=== PATIENT | female | born 1965 | race Caucasian/White ===

== ENCOUNTER 2019-05-25 17:28 | Observation (INO) ==
--- NOTE | 2019-05-25 17:58 | EKG Report ---
Test Performed on : 05/25/2019 5:55:27 PM Test Reason : blurred vision Blood Pressure : / mmHG Vent. Rate : 090 BPM Atrial Rate : 090 BPM P-R Int : 154 ms QRS Dur : 082 ms QT Int : 356 ms P-R-T Axes : 056 026 029 degrees QTc Int : 435 ms Normal sinus rhythm. Possible Left atrial enlargement Anterior infarct , age undetermined Abnormal ECG When compared with ECG of 15-FEB-2017 02:07, Anterior infarct is now present Unconfirmed Result
--- NOTE | 2019-05-25 18:09 | PROVIDER DOCUMENTATION ---
HPI-Neurological Disorder - General Chief Complaint: General Adult Stated Complaint: IRREGULAR BP Time Seen by Provider: 05/25/19 17:56 Source: patient Allergies/Adverse Reactions: Patient Allergies Allergy/AdvReac Type Severity Reaction Status Date / Time No Known Allergies Allergy Verified 02/15/17 02:05 Home Medications: Home Medication List Medication Instructions Recorded Confirmed Last Taken Type Losartan Potassium 02/15/17 1 Day Ago History ~02/14/17 - History of Present Illness-Neuro Nature of Presenting Problem: 53 yof with pmh of HTN presents with c/o visual loss in peripheral field and 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 She reports this lasted about 15-20min. She denies all other symptoms including CP, SOB, Fever, Chills, N/V/D. She does report she had drank aprox 1 liter of mt dew while painting today. Severity: reports: moderate Onset/Duration: reports: 1-3 hours ago Timing: reports: gone now Approximate time patient was last seen normal?: 16:00 Any recent trauma/injury?: reports: none Character of Deficits: reports: vision problem/glaucoma New weakness or altered sensation location:: reports: none Cognitive Baseline: alert, oriented x3 Gait Baseline: walks without assistance Associated Symptoms: reports: vision changes (resolved) Similar Symptoms Previously?: No Recently seen or treated by another doctor?: No Review of Systems - Adult - REVIEW OF SYSTEMS - ADULT Constitutional: reports: no symptoms reported. denies: see HPI, chills, fever, fatique, night sweats, weight gain, weight loss, other Eyes: reports: see HPI, decreased vision (IN L PERIPHERAL), blurred vision Ears, Nose, Mouth & Throat: reports: no symptoms reported. denies: see HPI, ear discharge, ear pain, hearing loss, tinnitus, epistaxis, sinus problem, nose pain, loose teeth, mouth/dental pain, mouth swelling, hoarseness, throat pain, throat swelling, other Cardiovascular: reports: no symptoms reported. denies: see HPI, chest pain, edema, heart murmur, irregular heart rate, orthopnea, palpitations, poor circulation, PND, syncope, other Respiratory: reports: no symptoms reported. denies: see HPI, chronic cough, cough, dyspnea on exertion, excessive sputum production, hemoptysis, pleurisy, shortness of breath, wheezing, other Gastrointestinal: reports: no symptoms reported. denies: see HPI, abdominal pain, hematemesis, constipation, diarrhea, difficulty swallowing, frequent heartburn, nausea, poor appetite, rectal bleeding, vomiting, other Genitourinary: reports: no symptoms reported. denies: see HPI, dysuria, discharge, frequency, flank pain, frequent UTI's, hematuria, hesitency, incontinence, urinary retention, urgency, other Musculoskeletal: reports: no symptoms reported. denies: see HPI, bone pain, back pain, frequent leg cramps, joint pain, joint swelling, muscle aches, muscle weakness, neck pain, other Integumentary: reports: no symptoms reported. denies: see HPI, hives, hair loss, itching, mole changes, nail changes, rash, skin sores/ulcer, skin thickening, other Neurological: reports: see HPI. denies: no symptoms reported, ataxia, dizziness/vertigo, headache/migraines, loss of balance, numbness, paresthesia, seizure, slurred speech, syncope, tremors, other Psychiatric: reports: no symptoms reported. denies: see HPI, anxiety, anti-depressant use, alcohol/drug dependence, depression, emotional problems, insomnia, panic attacks, suicidal thoughts, other Endocrine: reports: no symptoms reported. denies: see HPI, change in skin pigment, excessive sweating, goiter, cold intolerance, heat intolerance, increased hunger, increased thirst, polyuria, other Hematologic/Lymphatic: reports: no symptoms reported. denies: see HPI, blood clots, easy bruising, low blood count, lymphedema, prolonged bleeding, swollen lymph nodes, transfusions, other Allergic/Immunologic: reports: no symptoms reported. denies: see HPI, allergic reactions, allergic rhinitis, asthma, eczema, food allergy, frequent infections, hay fever, hives, positive PPD, urticaria, other Past History - Adult - PAST MEDICAL HISTORY-ADULT Review of Records: reports: Nursing Assessment Review, Social history reviewed & non-contributory. Major Childhood Illnesses: reports: denies history Cardiovascular: reports: HTN Respiratory: reports: denies history Gastrointestinal: reports: denies history Obstetrical/Gynecological: reports: denies history Genitourinary: reports: denies history Musculoskeletal: reports: denies history Neurological: reports: denies history Endocrine/Immune: reports: denies history Other Conditions: reports: denies history - PRIOR SURGERIES/PROCEDURES Surgical/Procedure History: reports: hysterectomy - IMMUNIZATION STATUS Childhood Immunizations: See Nurse Assessment Flu Vaccine: See Nurse Assessment Physical Exam- Neurological - Physical Exam-Neuro Initial Vital Signs Reviewed: Yes General Appearance: appears well, alert, no apparent distress Eye Exam: bilateral eye: normal inspection, PERRL, EOMI, other (CURRENLTLY ALL VISUAL KELLY INTACT) HENMT: normocephalic/atraumatic, moist mucous membranes, normal ENT inspection Head Injury: no evidence of injury Neck: non-tender, full range of motion, supple Respiratory: chest non-tender, lungs clear, normal breath sounds, no pleuratic chest pain, no respiratory distress, no accessory muscle use Cardiovascular: normal peripheral pulses, regular rate, rhythm, no edema, no gallop, no JVD, no murmur Abdominal Exam: normal bowel sounds, non tender, soft Lymphatic: no adenopathy Extremity: normal range of motion, non-tender, normal gait, 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 negative: abnormal eye po sition, abnormal gag reflex, abnormal pupil position, abnormal speech, facial droop, facial paresthesias, facial weakness, gaze palsy, hearing deficit (R), hearing deficit (L), tongue deviation to R, tongue deviation to L Coordination/Gait: normal finger to nose, normal gait Motor/Sensory: no motor deficit, no sensory deficit, no pronator drift. negative: sensory deficit Neurologic: grossly normal Integumentary: normal color, normal turgor, warm/dry Psych/Mental Status: normal mood/affect, oriented x 3 - Glascow Coma Scale Best Eye Response: (4) open spontaneously Best Verbal Response: (5) oriented Best Motor Response: (6) obeys commands Progress - PLAN OF CARE/RESULTS Progress/Plan/Lab Results: Vital Signs - 8 hr 05/25/19 17:49 Temperature 98.4 F Pulse Rate 93 H Respiratory Rate 16 Blood Pressure 154/84 O2 Sat by Pulse Oximetry 97 Laboratory Results - last 24 hr 05/25/19 05/25/19 05/25/19 18:07 18:07 18:07 WBC 11.75 H RBC 4.55 Hgb 14.2 Hct 42.3 MCV 93.0 MCH 31.2 H MCHC 33.6 RDW Std Deviation 13.3 Plt Count 271 MPV 10.5 H Immature Gran % (Auto) 0.2 Neut % (Auto) 63.5 Lymph % (Auto) 27.7 [place] % (Auto) 6.7 Eos % (Auto) 1.6 Baso % (Auto) 0.3 Immature Gran # (Auto) 0.02 Neut # (Auto) 7.45 H Lymph # (Auto) 3.26 [place] # (Auto) 0.79 H Eos # (Auto) 0.19 Baso # (Auto) 0.04 Sodium Potassium Chloride Carbon Dioxide Anion Gap BUN Creatinine Estimated GFR/1.73 m2 BUN/Creatinine Ratio Glucose Calculated Osmolality Calcium Total Bilirubin AST ALT Alkaline Phosphatase Creatine Kinase 148 Troponin T < 0.010 Total Protein Albumin Globulin Albumin/Globulin Ratio 05/25/19 18:07 WBC RBC Hgb Hct MCV MCH MCHC RDW Std Deviation Plt Count MPV Immature Gran % (Auto) Neut % (Auto) Lymph % (Auto) [place] % (Auto) Eos % (Auto) Baso % (Auto) Immature Gran # (Auto) Neut # (Auto) Lymph # (Auto) [place] # (Auto) Eos # (Auto) Baso # (Auto) Sodium 142 Potassium 3.8 Chloride 107 Carbon Dioxide 21 L Anion Gap 14 BUN 17 Creatinine 0.6 Estimated GFR/1.73 m2 > 60 BUN/Creatinine Ratio 28 Glucose 104 Calculated Osmolality 285 Calcium 8.7 L Total Bilirubin 0.20 AST 15 ALT 16 Alkaline Phosphatase 84 Creatine Kinase Troponin T Total Protein 6.7 Albumin 4.3 Globulin 2.0 Albumin/Globulin Ratio 2.0 Orders Category Date Time Status CT HEAD W/O CONTRAST [CT] Stat Exams 05/25/19 18:03 Completed CBC WITH DIFF [HEME] Stat Lab 05/25/19 18:07 Completed CK PROFILE [SP CHEM] Stat Lab 05/25/19 18:07 Completed COMPREHENSIVE METABOLIC PANEL [CHEM] Stat Lab 05/25/19 18:07 Completed TROPONIN T Stat Lab 05/25/19 18:07 Completed Nicotine Patch [Nicoderm Patch] Med 05/25/19 20:37 Discontinued 21 mg TD NOW ONE EKG [EKG] Stat Ther 05/25/19 17:54 Draft Result Diagrams: 05/25/19 18:07 05/25/19 18:07 - EKG 1 Time of EKG reading by physician:: 18:05 EKG Read and Signed by:: Glynn Domingo EKG Interpretation (*Must complete 3 of following elements*): Abnormal Rate: 90 Rhythm: NSR W POSSIBLE L ATRIAL ENLARGEMENT [place]: normal QRS: normal CT Interval: normal ST Wave: non-specific ST changes Prior EKG Comparison: changes noted - CT/MRI 1 CT Study: Head Impression: See EMR Report (CT HEAD W/O CONTRAST - 05/25/2019 INDICATION: vision changes COMPARISON: None FINDINGS: The ventricles and sulci are normal in size and contour. No intracranial mass or hemorrhage. The skull is intact. The sinuses mastoids and middle ears are clear. IMPRESSION: Negative exam. This exam was performed using automated exposure control, adjustment of mA or kV according to patient size, and/or use of iterative reconstruction technique Electronically signed by Keven Moser 05/25/2019 7:55 PM 05/25/191954 Interpreting Physician: Keven Moser MD Dictated Date/Time: 05/25/191953 cc: Jeanette Beebe; Grisel Pritchard MD) - CONSULTS/PCP/HOSPITALIST Notification #1 *Consult/PCP/Hospitalist*: DR RIVERA Time Discussed: 20:49 Consult Disposition: Admit Departure - Departure Date of Disposition Decision: 05/25/19 Time of Disposition Decision: 20:50 DIAGNOSIS: TIA (transient ischemic attack) Disposition: ADMITTED INPATIENT 09 Certified Medical Emergency: Emergent Condition: Stable Referrals and Follow-Ups: Grisel Pritchard MD [Primary Care Provider] - - Critical Care Note This patient required my direct & personal management of CC.: No Attestation - Physician/ CAMMIE Attestation Patient care was provided by Advanced Practice Provider:: Yes Advanced Practice Provider:: Jeanette Beebe Advanced Practice Provider documentation review:: The Mid-level provider documentation, treatment plan and medical decision making was reviewed by the physician who agrees with all treatment and medical decision making by the MLP. The physician spent face to face time with patient:: No Advanced Practice Provider documentation review:: Supervising physician onsite and consulted in the evaluation and care of this patient. The physician did not have a face to face encounter with the patient. - NIH Stroke Scale NIH Type: Initial Evaluation Level of Consciousness: 0-Alert LOC Questions (ask month and age): 0-Answers Both Correctly Best Gaze (horizontal eye movement): 0-Normal Visual (use finger movement, counting or visual threat): 0-No Visual Loss Facial Palsy (show teeth or raise eyebrows & close eyes tght: 0-Symmetrical Movement Motor Function-left arm: 0-Normal Motor Function-right arm: 0-Normal Motor Function-left le-Normal Motor Function-right le-Normal Limb Ataxia([id number]-[id number], or heel to phillips): 0-No Ataxia Sensory(pin prick to face,arms,trunk,legs-compare side/side): 0-No Ataxia Best Language(name item/read sentence.Ex-Down to Earth): 0-No Aphasia Dysarthria(Pt read words or say words Ex.Mama,Tip-Top,Thanks: 0-Normal Articulation Extinction and Inattention: 0-Normal Modified Easton Score Criteria: 0-no symptoms
[2019-05-25 18:12] LABS: BASO# 0.04 X1000 (0.0-0.2); BASO% 0.3 % (0.0-0.8); EOS# 0.19 X1000 (0.0-0.7); EOS% 1.6 % (0.0-10.0); HEMATOCRIT 42.3 % (37.0-47.0); HEMOGLOBIN 14.2 g/dL (12.0-16.0); IMM GRAN# 0.02 X1000 (0.0-0.04); IMM GRAN% 0.2 % (0.0-0.5); LYMPH# 3.26 X1000 (1.2-3.4); LYMPH% 27.7 % (20.5-51.1); MCH 31.2 PG (27-31); MCHC 33.6 g/dL (33-37); MONO# 0.79 X1000 (0.11-0.59); MONO% 6.7 % (1.7-9.3); MPV 10.5 FL (7.4-10.4); NEUT# 7.45 X1000 (1.4-6.5); NEUT% 63.5 % (42.2-75.2); PLT 271 X1000 (130-400); RBC 4.55 XMIL (4.2-5.4); RDW 13.3 % (11.5-14.5); WBC 11.75 X1000 (4.8-10.8)
[2019-05-25 18:36] LABS: AGAP 14; ALBUMIN 4.3 g/dL (3.5-5.0); ALKALINE PHOSPHATASE 84 U/L (32-104); BUN 17 mg/dL (8-22); CALCIUM 8.7 mg/dL (8.8-10.2); CHLORIDE 107 mmol/L (98-107); COSMO 285; CREATININE 0.6 mg/dL (0.5-0.9); ESTIMATED GFR > 60; GLUCOSE 104 mg/dL (70-104); GOT 15 U/L (10-30); GPT 16 U/L (10-36); POTASSIUM 3.8 mmol/L (3.5-5.1); SODIUM 142 mmol/L (136-145); TCO2 21 mmol/L (25-35); TOTAL PROTEIN 6.7 g/dL (6.3-8.3)
--- NOTE | 2019-05-25 19:58 | Diag Imaging Result Doc PS360 ---
CT HEAD W/O CONTRAST - 05/25/2019 INDICATION: vision changes COMPARISON: None FINDINGS: The ventricles and sulci are normal in size and contour. No intracranial mass or hemorrhage. The skull is intact. The sinuses mastoids and middle ears are clear. IMPRESSION: Negative exam. This exam was performed using automated exposure control, adjustment of mA or kV according to patient size, and/or use of iterative reconstruction technique Electronically signed by Keven Moser 05/25/2019 7:55 PM
[2019-05-25] MEDS ORDERED: NICODERM PATCH TD ONE (20:37)
[2019-05-25 22:50] LABS: CHOLESTEROL 155 mg/dL (0-200); HDL 54 mg/dL (45-65); LDL 79 mg/dL; TRIGLYCERIDES 112 mg/dL (35-135); VLDL 22 mg/dL
[2019-05-25] MEDS: ASPIRIN PO SCH (23:18)
--- NOTE | 2019-05-26 08:22 | Diag Imaging Result Doc PS360 ---
EXAM: MRI BRAIN W/O CONTRAST - 05/25/2019 HISTORY: tia TECHNIQUE: MRI brain without contrast. No contrast administered per request of the referring provider. COMPARISON: 05/25/2019 CT head without contrast FINDINGS: There is no evidence of intracranial hemorrhage, mass effect, midline shift, or hydrocephalus. The diffusion weighted images show no areas of restricted diffusion (no evidence of acute infarct). There are possibly minimal chronic microvascular ischemic changes. There are no other substantial signal abnormalities identified. IMPRESSION: Possible minimal chronic microvascular ischemic changes. No visible acute intracranial abnormality. No evidence of acute infarct. Electronically signed by Marcelo Polanco 05/26/2019 8:20 AM
--- NOTE | 2019-05-26 08:27 | Diag Imaging Result Doc PS360 ---
EXAM: MRA BRAIN W/O CONTRAST - 05/25/2019 HISTORY: tia TECHNIQUE: MRA brain without contrast. MR angiogram of the intracranial circulation with 3-D MIP images is obtained. COMPARISON: None. FINDINGS: There is no major intracranial arterial occlusion identified. The left anterior cerebral artery is generally mildly smaller in caliber than the right which is likely long-standing and may relate to normal variation. There is no discrete focal substantial stenosis of major intracranial arteries identified. There is no aneurysm identified. IMPRESSION: No discrete significant abnormality. Electronically signed by Marcelo Polanco 05/26/2019 8:25 AM
[2019-05-26] MEDS ORDERED: COZAAR PO SCH (10:00)
[2019-05-26] MEDS: ASPIRIN PO SCH (10:04)
[2019-05-26] MEDS ORDERED: NICODERM PATCH TD SCH (10:15)
--- NOTE | 2019-05-26 10:18 | Extremity Venous Study ---
EXAM: Carotid Ultrasound - 05/25/2019 HISTORY: tia TECHNIQUE: Carotid flow studies COMPARISON: None. FINDINGS: There is no substantial atherosclerotic plaquing identified in the right carotid system. Maximum systolic velocity in the right internal carotid is 110 cm/s, and maximum diastolic velocity is 41 cm/s. The right internal to common carotid systolic velocity ratio is 1.30. The flow velocities and ratio are consistent with 0-39% stenosis at the right internal carotid. The right vertebral demonstrates antegrade flow. There is no substantial atherosclerotic plaquing identified in the left carotid system. Maximum systolic velocity in the left internal carotid is 72 cm/s, and maximum diastolic velocity is 24 cm/s. The left internal to common carotid systolic velocity ratio is 0.70. The flow velocities and ratio are consistent with 0-39% stenosis at the left internal carotid. The left vertebral demonstrates antegrade flow. IMPRESSION: 0-39% stenosis at right internal carotid. 0-39% stenosis at left internal carotid. Electronically signed by Marcelo Polanco 05/26/2019 10:15 AM
--- NOTE | 2019-05-26 11:32 | HISTORY AND PHYSICAL ---
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 CHIEF COMPLAINT: Blurred vision and vision loss. HISTORY OF PRESENT ILLNESS: Ms. Monique is a 53-year-old female with past medical history of hypertension. 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 She stated that while she was painting she had some blurred vision and she actually had a little bit of vision loss for just a few minutes. With this blurred vision, she stated that she did check her blood pressure, blood pressure was noted to be 150/100. She had some peripheral vision dizziness where she was seeing floaters in her peripheral cheung. The patient states she did not have any confusion or any slurred speech or any weakness. These symptoms persisted for about 15- 20 minutes and then they stopped. The patient states she had not taken her blood pressure medication yesterday morning. She did take her blood pressure medicine when she started having these symptoms and the symptoms did resolve in about 20 minutes. The patient denied any chest pain, shortness of breath, fever or chills, nausea, vomiting, or diarrhea. 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 She does take losartan at home. She did have losartan/hydrochlorothiazide that she was taking for some time. Her primary MD did change her medication recently just putting her on the losartan and her blood pressure has been elevated and her associate professor physician reordered her some hydrochlorothiazide 12.5 mg. However, she has not picked up that prescription. Laboratory findings in the ER show a white blood cell count of 11.75. CT scan is a negative exam. MRI/MRA was performed. The MRI showed possible minimal chronic microvascular ischemic changes but no acute intracranial abnormality and no acute infarction. The MRA shows no abnormality. PAST MEDICAL HISTORY: Hypertension, tobacco dependency. PAST SURGICAL HISTORY: section and hysterectomy. FAMILY HISTORY: Significant for heart problems. SOCIAL HISTORY: The patient lives in [place]. 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 She smokes 1 pack of cigarettes per day for greater than 40 years. States she does not do any illicit drugs, however, she does drink occasionally alcohol once every 3-4 months. ALLERGIES: No known drug allergies. MEDICATIONS: Losartan potassium 100 mg p.o. daily. LABS AND DIAGNOSTICS: White blood cell count 11.75, hemoglobin 14.2, hematocrit 42.3, platelet count is 271. Sodium 142, potassium 3.8, chloride 107, carbon dioxide 21, anion gap 14, BUN is 17, creatinine is 0.6, GFR is greater than 60, glucose is 104, calcium is 8.7, bilirubin is 0.2, AST is 15, ALT is 16, alkaline phosphatase is 84. Creatine kinase 148, troponin less than 0.01. Triglycerides 112, cholesterol is 155, LDL is 79, VLDL 22, HDL 54. Head CT is negative. MRA of the brain shows no discrete significant abnormality. MRI of the brain shows possible minimal chronic microvascular ischemic changes, no visible acute intracranial abnormality. No evidence of acute infarction. Carotid Doppler studies have been performed, the results are not back. EKG shows normal sinus rhythm with a rate of 90 beats per minute. REVIEW OF SYSTEMS: A 12-point review of systems has been obtained and are well negative except what is stated above in the HPI. PHYSICAL EXAMINATION: VITAL SIGNS: Temperature 97.6, pulse rate 62, respiratory rate 14, blood pressure is 151/65, O2 saturation is 99% on room air. GENERAL: This is a 53-year-old female. She is sitting upon the side of the bed. She is in no acute distress. She is well-nourished and well-developed. HEENT: Atraumatic, normocephalic. Pupils equal, round, and reactive to light. Sclerae icteric. Mucous membranes are moist. NECK: Supple. No lymphadenopathy. Trachea is midline. No JVD. No thyromegaly. No bruits. CARDIOVASCULAR: Regular rate and rhythm. No gallops or rubs noted. RESPIRATORY: Lungs sounds are clear with equal chest excursion. Respirations are nonlabored with no accessory muscle usage. GASTROINTESTINAL: Abdomen is soft, nontender, nondistended, bowel sounds are present x4. NEUROLOGICAL: Cranial nerves II through XII are intact. The patient is awake, alert and oriented, able to follow all commands, moves all extremities well. MUSCULOSKELETAL: Full distal strength noted, no abnormalities or deformities. Full gait noted. EXTREMITIES: No clubbing, no cyanosis, no edema. DP and PT pulses are present and palpable. SKIN: Warm, dry, and intact. No rashes or bruises or diaphoresis. ASSESSMENT AND PLAN: 1. Transient ischemic attack. We have admitted this patient to the Medical floor. We have performed a MRI and MRA of the brain. We are going to continue her home medications and observe this patient for any further symptoms. 2. Hypertension. We have restarted this patient's home losartan potassium. We are going to monitor her blood pressure closely. 3. Obesity. 4. Tobacco dependency. We provided smoking cessation information and I provided her with a nicotine patch. I have admitted this patient to the Medical floor. She is being monitored closely with her vital signs for further symptoms of TIA. We are going to restart her home blood pressure medications, start her on a healthy heart diet. All other further recommendations pending hospital course and lab data. Dictated by DEION Huntley for Kimberly Luis MD cc: MD Mily Tirado CRNP MTDD
[2019-05-26 12:01] VITALS: BP 141/75
--- NOTE | 2019-05-26 13:35 | HISTORY AND PHYSICAL ---
ADDENDUM: I discussed patient in detail with nurse practitioner, Elizabeth Jnoes, and fully agree with her assessment and plan. This is a 53-year-old female, who has a history of hypertension and had an episode of blurred vision last evening that has now improved. She did have normal carotid Doppler and brain MRI was also performed that showed possible minimal chronic microvascular ischemic changes, but no CVA. The patient's condition has been stable, and therefore we are going to be discharging her home today. cc: Kimberly Luis MD
--- NOTE | 2019-05-26 14:21 | DISCHARGE SUMMARY ---
ADMISSION DATE: 05/25/2019 DISCHARGE DATE: 05/26/2019 DISCHARGE DIAGNOSES: 1. Transient ischemic attack. 2. Hypertension. HOSPITAL COURSE: Ms. Monique is a 53-year-old female who had a brief episode of blurred vision yesterday evening that has now resolved. It only stayed there for about 20 minutes. She states that she had not taken her blood pressure medicine at that time. We did MRI and CT scan of the brain that showed chronic microvascular changes but no acute stroke. Her carotid Doppler study is also negative. Her condition has been stable, and therefore she is going to be discharged home today. I advised her to continue with her losartan 100 mg orally once daily. 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 I advised her to have her ophthalmologic exam done by an eye doctor as well. DISCHARGE MEDICATIONS: 1. Losartan 100 mg orally once daily. 2. Hydrochlorothiazide 12.5 mg orally once daily in the morning. FOLLOWUP: She will follow up with her PCP in 1 week and also see Dr. Kennedy for eye exam in 1 to 2 weeks. CONDITION: Stable. DISPOSITION: Home. cc: Kimberly Luis MD
--- NOTE | 2019-05-26 18:22 | ECHO REPORT ---
ORDER DATE: 05/25/2019 MEASUREMENTS: Septal thickness 1.0, left ventricular internal diameter diastole 5.0, posterior wall thickness 0.8, left ventricular internal diameter in systole 3.4, left atrium 3.4, aortic root 2.8. SUMMARY: 1. Fair quality study. 2. Aortic valve was without evidence of structural abnormality and appears to open adequately on 2-dimensional images. Peak gradient across aortic valve is less than 10 mmHg. There is trace aortic regurgitation. Mitral and tricuspid valves are without evidence of structural abnormality while pulmonic valve is not well demonstrated. There is trace mitral regurgitation. There is trace tricuspid regurgitation. Aortic root is normal in size. 3. Normal left ventricular dimensions demonstrated. Estimated left ejection fraction approximately 60%. No regional wall motion abnormalities are evident. Doppler suggests grade 1 left ventricular diastolic dysfunction. Left atrium, right atrium, right ventricle normal in size with grossly preserved right ventricular systolic function. 4. No pericardial effusion. 5. Appearance of inferior vena cava suggests normal central venous pressure. cc: MD Kimberly Jaimes MD
== END 2019-05-26 14:20 | disposition home or self-care (01) ==
LOC: P.ED 17:28 → P.MEDSURG 17:29 → INTOOBSV 17:29
PROVIDERS: ADMIT Internal Medicine